=== PATIENT | female | born 1945 | race Caucasian/White ===

== ENCOUNTER → 2021-09-17 | Outpatient (CLI) | payer MEDICARE, BC | LOC: DX 10:22 | PROVIDERS: ATTEND Internal Medicine Gastroenterology | DX: R13.10 Dysphagia, unspecified (principal); Z20.822 Contact with and (suspected) exposure to COVID-19 | CPT/HCPCS: 74220; 74246; U0002 ==

== ENCOUNTER 2023-04-25 10:39 | Emergency (ER) | payer OTHER, MEDICARE ==
[~2023-04-25] VITALS: Ht 177.8 cm; Wt 74.0 kg
[2023-04-25] MEDS ORDERED: IBUPROFEN 200 MG TAB PO ONE (11:00)
[2023-04-25] MEDS ORDERED: AMLODIPINE BESYL5 MG PO (11:02)
[2023-04-25] MEDS ORDERED: LYRICA50 MG PO (11:02)
[2023-04-25] MEDS ORDERED: LOSARTAN-HCTZ1 EAC2 (11:02)
[2023-04-25] MEDS ORDERED: SIMVASTATIN40 MG PO (11:02)
[2023-04-25] MEDS ORDERED: HYDROCODON-ACE1 EAC9 (11:02)
[2023-04-25] MEDS ORDERED: HYOSCYAMIN0.125 MG/1 PO (11:02)
[2023-04-25] MEDS ORDERED: CRESTOR10 MG PO (11:02)
[2023-04-25] MEDS ORDERED: VITAMIN B-121000 MCG PO (11:02)
[2023-04-25] MEDS ORDERED: NUEDEXTA 20-101 EACH (11:02)
[2023-04-25] MEDS ORDERED: VITAMIN D350 MCG (11:02)
[2023-04-25] MEDS ORDERED: PLAQUENIL200 MG PO (11:02)
[2023-04-25] MEDS ORDERED: IMITREX50 MG PO (11:02)
[2023-04-25] MEDS ORDERED: CALTRATE 600 W1 EACH (11:02)
[2023-04-25] MEDS ORDERED: ZETIA10 MG PO (11:02)
[2023-04-25] MEDS ORDERED: SYMBICORT 16010.2 GM INH (11:02)
[2023-04-25] MEDS ORDERED: CETIRIZINE HCL10 MG (11:02)
[2023-04-25] MEDS ORDERED: ASPIRIN EC81 MG PO (11:02)
[2023-04-25] MEDS ORDERED: IBUPROFEN 600 MG TAB ONE (11:03)
[2023-04-25 11:53] VITALS: O2SAT 99
== END 2023-04-25 12:03 | disposition home or self-care (01) ==
LOC: FSED 10:45
DX: S22.31XA Fracture of one rib, right side, initial encounter for closed fracture (principal); W18.39XA Other fall on same level, initial encounter; Y92.89 Other specified places as the place of occurrence of the external cause; I10 Essential (primary) hypertension; N28.9 Disorder of kidney and ureter, unspecified; I25.10 Atherosclerotic heart disease of native coronary artery without angina pectoris
CPT/HCPCS: 71250; 99283